=== PATIENT | male | born 1940 | race Caucasian/White ===

== ENCOUNTER → 2022-02-09 | Outpatient (CLI) | payer MEDICARE ==
[2022-02-09 10:44] LABS: HCT 38.2 % (39.6-50.0); HGB 11.6 g/dL (13.0-17.0); MCH 29.6 pg (27.0-32.0); MCHC 30.4 g/dL (32.0-37.0); MCV 97.4 fL (80.0-97.0); Mean Platelet Volume 10.6 fL (9.5-12.2); NRBC Per 100 WBC 0 /100 WBCS (0.0-0.0); Platelet Count 191 X 10*3/uL (140-440); RBC 3.92 X 10*6/uL (4.40-5.60); RDW 14.6 % (11.5-14.5); WBC 6.55 X 10*3/uL (4.50-10.00)
[2022-02-09 11:17] LABS: ALT 19 U/L (10-49); AST 15 U/L (14-35); African American GFR (CKD) 54.2 (60.0-200.0); BUN/Creat Ratio 20.86 Ratio (12.00-20.00); Blood Urea Nitrogen 29.2 mg/dL (9.0-27.0); Calcium 9.5 mg/dL (8.7-10.3); Chloride 107 mmol/L (96-109); Chol/HDL Ratio 3.19 Ratio; Glucose 168 mg/dL (70-110); LDL Cholesterol,Calculated 75.3 mg/dL (0.0-131.0); Non-African American GFR(CKD) 46.8 (60.0-200.0); Potassium 5.4 mmol/L (3.5-5.5); Sodium 141 mmol/L (135-145)
== END | disposition home or self-care (01) ==
LOC: LABWHC1 07:44
PROVIDERS: ATTEND Internal Medicine Cardiovascular Disease
DX: E78.2 Mixed hyperlipidemia (principal)
CPT/HCPCS: 36415; 80048; 80061; 84443; 84450; 84460; 85027